=== PATIENT | male | born 1965 | race Caucasian/White ===

== ENCOUNTER 2021-11-04 00:27 | Emergency (ER) | payer OTHER, SELFPAY ==
[2021-11-04 00:30] VITALS: BP 145/85; PULSE 93; RESP 18; TEMP 37.2; O2SAT 97; BMI 26.9
[2021-11-04 01:09] VITALS: BP 132/77; PULSE 98; RESP 16; TEMP 37.7; O2SAT 99
--- NOTE | 2021-11-04 01:23 | ED_ITS ---
HPI - General Adult General Chief complaint: General Medical Stated complaint: Sore throat/ +Covid Time Seen by Provider: 11/04/21 01:03 Source: patient Mode of arrival: ambulatory Limitations: no limitations History of Present Illness HPI narrative: 56-year-old male who presents emergency department evaluation sore throat COVID positive test result. The patient states that he is not vaccinated against COVID-19. 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 He states that he got sick the day. He states that he has a cough which is nonproductive. He had body aches and subjective fevers. He states that over the past 24 hours she has developed a severe sore throat. He states that he has an intermittent severe and ?pain ?in his throat whenever he swallows. He is able to swallow liquids and solids. He denied chest pain, shortness of breath, dyspnea on exertion. He states that he has been taking ibuprofen 400 mg twice a day with no relief his pain. He has used multiple murk-tun-nniontn sore throat medications with no relief his pain. Related Data Previous Rx's Medication Instructions Recorded azithromycin 250 mg tablet See Rx Instructions PO .COMPLEX #6 11/04/21 (Zithromax Z-Wesley) tab oxycodone 5 mg tablet 5 mg PO Q4H PRN #14 tab 11/04/21 Allergies Allergy/AdvReac Type Severity Reaction Status Date / Time No Known Allergies Allergy Unverified 03/18/20 18:06 Review of Systems Review of Systems: Yes all other systems are reviewed and are negative [facility] Past Medical History [facility] Narrative: Past medical history: None. Past surgical history: None. Social history he denies tobacco use. He states that he occasionally drinks alcohol. He denies drug use. Physical Exam ED Vital Signs: Vital Signs - 24 hr 11/04/21 00:30 11/04/21 01:09 Temperature 98.9 F 99.9 F Pulse Rate 93 98 Respiratory Rate 18 16 Blood Pressure 145/85 H 132/77 Pulse Oximetry 97 99 BMI result Body Mass Index 26.9 Const Other: Awake, alert, male patient, pleasant, cooperative does not appear to be in distress unless he swallows and then seems to have severe pain in his throat. HENPA Head: Yes normal to inspection, Yes normocephalic and Yes atraumatic Ears: external ears normal General nose exam: Normal external nose present Face and sinus: Yes normal facial exam Mouth: Normal oral and palatal mucosa present Throat: Yes tonsils normal, Yes uvula midline and Yes other (Posterior erythema with no exudate) Eyes General: appearance normal, both eyes and all related structures Pupils: Equal, round and reactive pupils present Neck Neck: Yes normal visual inspection, Yes no lymphadenopathy, Yes trachea midline and Yes supple Chest Chest palpation & inspection: normal inspection of the chest and normal palpation of entire chest wall Resp Effort & Inspection: normal respiratory effort and able to speak in complete sentences Auscultation: clear to auscultation bilaterally Cardio Rate: regular rate Rhythm: regular rhythm Heart sounds: S1 normal heart sound present, S2 normal heart sound present and no murmurs GI Inspection: Yes normal to inspection Palpation (GI): Soft to palpation, nontender and no guarding Auscultation: normal bowel sounds General: Yes no CVA tenderness Back/Spine/Pelvis Back: no CVA tenderness Skin General skin exam: no rashes or lesions noted Neuro Cranial nerves: Yes CN's II-XII intact bilaterally and Yes Equal, round and reactive pupils present Cognition (Neuro): normal cognition Motor exam (neuro): 5/5 motor strength present throughout Extrem General: Yes normal to inspection Psych Appearance: grossly normal Speech and movement: Normal speech and movement present Affect: normal affect Attitude: cooperative Thought process: Normal thought process present Thought content: Normal thought content present Course Course Course Narrative: 56-year-old male who has been sick for approximately 7 days who had a positive COVID test yesterday who presents emergency department for evaluation of severe throat pain whenever he swallows. The symptoms have been there for approximately 24 hours. He has other symptoms that are consistent with his COVID-19 infection which include nonproductive cough, myalgias, subjective fevers. He has had no dyspnea on exertion, chest pain or shortness of breath. Vital signs revealed an elevated blood pressure of 145/85 otherwise were unremarkable with an O2 saturation of 97-99% on room air. His throat exam did reveal posterior erythema otherwise was unremarkable. I did discuss doing a rapid strep test on the patient but this time the patient would prefer being treated with antibiotics and does not want testing. The patient therefore will be started on Zithromax Z-Wesley for possible strep pharyngitis. He was also advised to take ibuprofen and Tylenol and for pain not relieved by these 2 medications he was prescribed oxycodone 5 mg every 4 hours as needed for pain. Patient does not have any significant risk factors for severe COVID illness however he is not vaccinated I did discuss possible monoclonal therapy and other antiviral treatments with the patient, he states he is not interested in pursuing these treatment options at this time. The patient was given printed and verbal instructions and discharged home. Discharge Plan Discharge Clinical Impression: COVID-19 virus infection Pharyngitis Qualifiers: Pharyngitis/tonsillitis etiology: unspecified etiology Qualified Code(s): J02.9 - Acute pharyngitis, unspecified Patient Disposition: Home, Self-Care Instructions: Pharyngitis (ED), COVID-19 (Coronavirus Disease 2019) (ED) Additional Instructions: I am treating you with Zithromax Z-Wesley for possible strep throat. Your throat pain may also be caused by COVID-19 virus. Take ibuprofen 200 mg pills, 3 pills every 6 hours as needed for pain or fever Take Tylenol (acetaminophen) 500 mg pills, 2 pills every 4-6 hours as needed for pain or fever For pain not relieved by ibuprofen or Tylenol take oxycodone 5 mg pills, 1 pill every 4 hours as needed for pain. Do not drive or work while taking this medica tion since they can cause sleepiness. Oxycodone is a narcotic medication that can be addicting. If you are concerned about addiction you can ask the pharmacist for less pills or do not get this prescription filled. Follow-up with your doctor in 2 days. Please return to the emergency department if your symptoms get worse or if you develop any symptoms that are concerning to you. Prescriptions: New azithromycin [Zithromax Z-Wesley] 250 mg tablet See Rx Instructions PO .COMPLEX Qty: 6 0RF Rx Instructions: take 500 mg today (day 1), then 250 mg for 4 days (days 2-5) oxycodone 5 mg tablet 5 mg PO Q4H PRN (Reason: pain) Qty: 14 0RF Rx Instructions: Patient may request partial fill Interventions: ED Discharge Assessment Last Done: 11/04/21 01:31
[2021-11-04] MEDS: Ibuprofen 600 MG TABLET PO (01:34)
== END 2021-11-04 01:54 | disposition home or self-care (01) ==
LOC: HO.ED 01:42
PROVIDERS: Emergency Provider Emergency Medicine Emergency Medical Services; PCP Internal Medicine
DX: U07.1 COVID-19 (principal); J02.9 Acute pharyngitis, unspecified
CPT/HCPCS: 99283; 99284

== ENCOUNTER 2025-03-30 10:15 | Outpatient (AMB) | payer OTHER, SELFPAY ==
--- NOTE | 2025-03-30 10:34 | MHC.OFFVIS ---
Intake Visit Reasons: BL numbness LE Allergies No Known Allergies Allergy (Unverified 03/18/20 18:06) HPI Comments Details: The patient is a 59-year-old male presenting with numbness and tingling in the lower extremities. In mid-2024, he experienced sudden numbness from the legs down, with the greatest effect on the anterior shins. 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 He denies urinary incontinence but notes frequent urination without concern. The patient reports good energy levels and denies neck pain despite ongoing spinal adjustments. Prior evaluation suggested the possibility of a pinched nerve, based on initial impressions. MRI reports were inconclusive, prompting an assessment of the upper spinal cord to further investigate potential neurological causes. [facility] Medical History (Updated 03/30/25 @ 10:44 by Tk Mendez MD) Numbness of lower extremity Review of Systems Const Details: - Musculoskeletal: Reports back stiffness and prior lumbar issues; no neck pain. - Neurological: Reports numbness and tingling in lower extremities, primarily anterior shins and knees; weakness with stair climbing; denies headaches or dizziness. - Genitourinary: Reports frequent urination; denies incontinence issues. - General: Denies fatigue; reports good energy levels. Physical Exam Neuro Other: Mental Status: Alert and oriented to person, place, and time. Normal attention. Normal spontaneous speech, fluency, and comprehension. No obvious issues with mood and memory. Affect is appropriate. Cranial Nerves: CN II: Visual helms full to confrontation, visual acuity intact. CN III, IV, : Pupils equal, round, reactive to light and accommodation. Extraocular movements are normal. CN V: Facial sensation is normal. CN VII: Facial movements symmetrical. CN VIII: Hearing intact to bedside conversation is normal. CN IX, X: Palate elevates symmetrically. CN XI: Shoulder shrug and head turn symmetrical. CN XII: Tongue midline without atrophy or fasciculations. Motor: Bulk and tone normal in all extremities. No significant muscle weakness in arms and legs. No drift. Reflexes: Deep tendon reflexes are 2+ except knee reflexes are about 3 to 4+ with 1 to 2+ ankle reflexes and flexor plantars. Coordination: Ukjvym-nz-eayi and dgjx-kg-ehad testing normal. No dysmetria. Gait and Station: No obvious gait abnormality. No ataxia or instability. Sensory: Intact to light touch, pinprick, and vibration. Romberg is negative. Extrapyramidal: Full facial expressions and blinking. No rigidity. Movements are appropriate with no tremor or abnormality. Speech: Normal; no dysarthria or tremor. Assessment & Plan Assessment & Plan (1) Paraparesis: Comment: MRI LS spine at [facility] in December 2024: DJD, L 4/5 spondylitic process narrowing exiting foramen, especially R Code(s): G82.20 - Paraplegia, unspecified Category: Medical (2) Lumbar disc disease with radiculopathy: Code(s): M51.16 - Intervertebral disc disorders with radiculopathy, lumbar region Category: Medical Plan 59 years old man who suffered from chronic mild back pain. Few weeks ago he developed bilateral leg numbness and weakness, which now has mostly improved. There was no preceding illness further kind. His examination revealed significant hyperreflexia of legs suggestive of an upper motor neuron lesion. His MRI of lumbosacral spine did reveal spondylitic disease and especially at L4-5 level he has significant foraminal stenosis, which could result in radiculopathy but his overall presentation and examination suggested a different etiology of recent symptoms. An MRI of cervical and thoracic spine was recommended to start with rule out possibility of an entity like demyelinating disease. Orders: Orders MR thoracic spine wo/w con Today G82.20 - Paraplegia, unspecified MR cervical spine wo/w con Today G82.20 - Paraplegia, unspecified Coding Level of Care Code New Pt Level 5 (56379) Diagnoses Paraparesis G82.20 Lumbar disc disease with radiculopathy M51.16
--- OUTSIDE RECORDS SUMMARY | 2025-03-30 11:25 | XMS_ITS | Patient Health Record ---
Author Organization [facility] Address [address] [place] [address] Care Team Providers Care Plasterer Foreman Name Role Phone Yassine Min MD Primary Care Provider Joan Caputo Unavailable [phone] Allergies No Known Allergies Reason For Referral No Information Social History Tobacco Use: Social History Observation Description Date Details (start date - stop date) Never Smoker NA - NA Tobacco Use/Smoking Question Answer Notes Are you a: nonsmoker Alcohol Screen Question Answer Notes Did you have a drink contain ing alcohol in the past year? Yes How often did you have a dri nk containing alcohol in the past year? 4 or more times a week (4 points) How often did you have 6 or more drinks on one occasion in the past year? Daily or almost daily (4 points) Points 8 Interpretation Positive Tobacco use other than smoking: Question Answer Notes Are you an other tobacco user? No Plan Of Treatment No Information Insurance Providers Payer Name Payer Address Payer Phone Subscriber Number Group Number Insured Name Patient Relationship to Insured Coverage Start Date [facility]age End [facility] [address] [place] [phone] [id number] Yassine Glasgow Self - patient is the insured Medical (General) History Medical History History ICD Code Mumps Chicken pox Covid 19 Surgical History Surgery Date(Month/Year) pilonidal cyst excision 1991
== END 2025-03-30 10:50 | disposition home or self-care (01) ==
LOC: HO.HSM 10:16
PROVIDERS: PCP Internal Medicine; Visit Provider Psychiatry & Neurology Neurology
DX: G82.20 Paraplegia, unspecified (principal); M51.16 Intervertebral disc disorders with radiculopathy, lumbar region
CPT/HCPCS: 99204

== ENCOUNTER 2025-05-18 09:16 | Outpatient (AMB) | payer OTHER, SELFPAY ==
--- NOTE | 2025-05-18 09:32 | MHC.OFFVIS ---
Intake Visit Reasons: MRI review, Ok'd marilyn Mendez Allergies No Known Allergies Allergy (Unverified 03/18/20 18:06) HPI Comments Details: 59 years old man, retired from [employer] and now working as a dental insurance biller, who suffered from chronic intermittent mild back pain. Around March of 2025, he developed bilateral leg numbness and weakness which lasted for few weeks. His examination revealed significant hyperreflexia of legs suggestive of spastic paraparesis. MRI of lumbosacral spine revealed L4-5 level spondylitic bilateral foraminal stenosis, which might explain his chronic back pain, but not leg weakness and exam findings. MRI of thoracic spine was done in May, which revealed midthoracic area spondylitic disc bulge and adjacent cord lesion, hyperintensity on FLAIR without enhancement, and small syrinx. This clinical picture raised possibility of demyelinating disease. He is presenting with elevated urinary frequency and suspected neurological condition. He reports nocturia, urinating approximately three times nightly, which he attributes to his fluid intake. On prior examination, abnormal reflexes were noted, leading to further investigation. An MRI revealed spinal cord inflammation, not tumor-related. The patient has a past occurrence of bilateral leg numbness and weakness, noting improvement after initial onset. Symptoms suggest an inflammatory pathology, possibly consistent with multiple sclerosis (MS), although a definitive diagnosis has yet to be established. [facility] Medical History (Updated 05/18/25 @ 09:46 by Tk Mendez MD) Numbness of lower extremity Review of Systems Narrative - Genitourinary: Reports increased urinary frequency at night. - Neurological: Reports past bilateral leg numbness and weakness. Physical Exam Neuro Other: Mental Status: Alert and oriented to person, place, and time. Normal attention. Normal spontaneous speech, fluency, and comprehension. No obvious issues with mood and memory. Affect is appropriate. Cranial Nerves: CN II: Visual helms full to confrontation, visual acuity intact. CN III, IV, : Pupils equal, round, reactive to light and accommodation. Extraocular movements are normal. CN V: Facial sensation is normal. CN VII: Facial movements symmetrical. CN VIII: Hearing intact to bedside conversation is normal. CN IX, X: Palate elevates symmetrically. CN XI: Shoulder shrug and head turn symmetrical. CN XII: Tongue midline without atrophy or fasciculations. Motor: Bulk and tone normal in all extremities. No significant muscle weakness in arms and legs. No drift. Deep tendon reflexes are 3+ in legs. Coordination: Isalwz-vn-yhrz and zjzs-vh-jshp testing normal. No dysmetria. Gait and Station: No obvious gait abnormality. No ataxia or instability. Extrapyramidal: Full facial expressions and blinking. No rigidity. Movements are appropriate with no tremor or abnormality. Speech: Normal; no dysarthria or tremor. Assessment & Plan Assessment & Plan (1) Paraparesis: Comment: MRI T spine WWO at [facility] in May 2025: Mid thoracic disc bulge with cord lesion w/o enhancement, small T 6/7 syrinx MRI LS spine at [facility] in December 2024: DJD, L 4/5 spondylitic process narrowing exiting foramen, especially R Code(s): G82.20 - Paraplegia, unspecified Category: Medical (2) Lumbar disc disease with radiculopathy: Code(s): M51.16 - Intervertebral disc disorders with radiculopathy, lumbar region Category: Medical (3) Demyelinating disease: Code(s): G37.9 - Demyelinating disease of central nervous system, unspecified Category: Medical Plan During the consultation, I discussed with the patient his nocturia and its incongruence with typical fluid intake explanations, considering neurological causes may play a role. Spinal MRI showed inflammation, not tumor-relating. I explained that these findings merit further investigation, particularly to ascertain if brain lesions are present, which would bolster a multiple sclerosis diagnosis. Given the MRI results, MS is being considered, although not confirmed. We reviewed the necessity of additional imaging studies to map any multi-site inflammation. I reassured the patient regarding the plan, stating additional diagnostic imaging aligns with high certainty for accurate diagnosis. There were explanations about MS and individual patient variability, pointing to new treatments proving effective, shared to alleviate concerns about disease management in the event MS is confirmed. Future follow-up testing was emphasized, and ensuring patient understanding regarding anticipated insurance coverage challenges was addressed. Orders: Orders MR head/brain wo/w con Today G35 - Multiple sclerosis MR cervical spine wo/w con Today G35 - Multiple sclerosis Coding Level of Care Code Est Pt Level 4 (37885) Diagnoses Paraparesis G82.20 Lumbar disc disease with radiculopathy M51.16 Demyelinating disease G37.9
== END 2025-05-18 09:53 | disposition home or self-care (01) ==
LOC: HO.HSM 09:16
PROVIDERS: PCP Internal Medicine; Visit Provider Psychiatry & Neurology Neurology
DX: G82.20 Paraplegia, unspecified (principal); M51.16 Intervertebral disc disorders with radiculopathy, lumbar region; G37.9 Demyelinating disease of central nervous system, unspecified
CPT/HCPCS: 99214